=== PATIENT | male | born 1960 | race Caucasian/White ===

== ENCOUNTER 2025-06-03 22:13 | Emergency (ER) | payer OTHER ==
[~2025-06-03] VITALS: Ht 175.3 cm; Wt 68.4 kg
[2025-06-03 23:38] LABS: Hematocrit 40.5 % (41.0-53.0); Hemoglobin 14.0 g/dL (13.5-17.5); Mean Corpuscular Hemoglobin 31.1 pg (28.0-32.0); Mean Corpuscular Volume 89.7 fL (80.0-100.0); Nucleated Red Blood Cells % 0.1 %
[2025-06-03 23:45] LABS: Chloride 107 mmol/L (98-107); Potassium 4.4 mmol/L (3.5-5.1); Sodium 141 mmol/L (136-145)
[2025-06-03 23:46] LABS: Anion Gap 5 (5-15); Calcium 9.4 mg/dL (8.7-10.4); Carbon Dioxide 29 mmol/L (20-31)
[2025-06-03 23:51] LABS: BUN/Creatinine Ratio 11.5 (10.0-20.0); Blood Urea Nitrogen 13 mg/dL (9-23); Glucose 83 mg/dL (74-106)
--- NOTE | 2025-06-04 00:03 | ED.PDOC ---
History of Present Illness HPI Comments 64 y/o M presents with left arm swelling, redness, and pain. Patient reports onset of symptoms several days ago after watering his garden. He suspects on being bitten by an unknown insect then. Denies any nausea, vomiting, fever, chills, numbness, tingling, or further associated symptoms. Patient's tetanus is not up-to-date. Chief Complaint: Insect Bite Time Seen by MD: 23:20 Primary Care Provider: NONE Reviewed Notes: Nurses Notes, Medications, Allergies Allergies: Coded Allergies: NO KNOWN ALLERGIES (Unverified , 08/05/15) Information Source: Patient Mode of Arrival: Ambulatory Severity: Moderate Timing: Days Duration: Since onset Prehospital treatment: None Past Medical History PAST MEDICAL HISTORY: Denies Surgical History: Denies all surgeries Family History Family History: Unobtainable Social History Smoker: Cigarettes Alcohol: Occasionally Drugs: Methamphetamine Lives In: Home Constitutional: denies: chills, diaphoresis, fatigue, fever, malaise, sweats, weakness, others EENTM: denies: blurred vision, double vision, ear bleeding, ear discharge, ear drainage, ear pain, ear ringing, eye pain, eye redness, hearing loss, mouth pain, mouth swelling, nasal discharge, nose bleeding, nose congestion, nose pain, photophobia, tearing, throat pain, throat swelling, voice changes, others Respiratory: denies: cough, hemoptysis, orthopnea, SOB at rest, shortness of breath, SOB with excertion, stridor, wheezing, others Cardiovascular: denies: chest pain, dizzy spells, diaphoresis, Dyspnea on exertion, edema, irregular heart beat, left arm pain, lightheadedness, palpitations, PND, syncope, others Gastrointestinal: denies: abdomen distended, abdominal pain, blood streaked bowels, constipated, diarrhea, dysphagia, difficulty swallowing, hematemesis, melena, nausea, poor appetite, poor fluid intake, rectal bleeding, rectal pain, vomiting, others Genitourinary: denies: burning, dysuria, flank pain, frequency, hematuria, incontinence, penile discharge, penile sore, pain, testicle pain, testicle swelling, urgency, others Neurological: denies: dizziness, fainting, headache, left sided numbness, left sided weakness, numbness, paresthesia, pre-existing deficit, right sided numbness, right sided weakness, seizure, speech problems, tingling, tremors, weakness, others Musculoskeletal: denies: back pain, gout, joint pain, joint swelling, muscle pain, muscle stiffness, neck pain, others Integumetry: reports: wounds (Infected insect bite to left arm); denies: bruises, change in color, change in hair/nails, dryness, laceration, lesions, lumps, rash, others Allergic/Immunocompromised: denies: Difficulty Healing, Frequent Infections, Hives, Itching, others Hematologic/Lymphatic: denies: anemia, blood clots, easy bleeding, easy bruising, swollen glands, others Endocrine: denies: excessive hunger, excessive sweating, excessive thirst, excessive urination, flushing, intolerance to cold, intolerance to heat, unexplained weight gain, unexplained weight loss, others Psychiatric: denies: anxiety, bipolar disorder, depression, hopeless, panic disorder, schizophrenia, sleepless, suicidal, others All Other Systems: Reviewed and Negative (Comprehensive systems review obtained and negative except for what is stated in the HPI.) Physical Exam General Appearance: Mild Distress (Moderate distress at time of evaluation due to left arm concerns), Normal HEENT: Normal ENT Inspection, Pharynx Normal, TMs Normal Neck: Full Range of Motion, Non-Tender, Normal, Normal Inspection Respiratory: Chest Non-Tender, Lungs Clear, No Accessory Muscle Use, No Respiratory Distress, Normal Breath Sounds Cardiovascular: No Edema, No JVD, No Murmur, No Gallop, Normal Peripheral Pulses, Regular Rate/Rhythm Breast Exam: Deferred Gastrointestinal: No Organomegaly, Non Tender, No Pulsatile Mass, Normal Bowel Sounds, Soft Genitalia: Deferred Pelvic: Deferred Rectal: Deferred Extremities: Other (Left arm reveals two areas has been salt on the lateral and dorsal aspect with localized edema and mild erythema. No lymphangitis noted. Swelling extends into the hand.) Neurologic: Alert, No Motor Deficits, Normal Affect, Normal Mood, No Sensory Deficits Cerebellar Function: Normal Reflexes: Normal Skin: Dry, Normal Color, Warm Lymphatic: No Adenopathy Was a procedure done? Was a procedure done?: No Differential Dx Considerations may include: insect envenomization, contact dermatitis, cellulitis, among others X-Ray, Labs, Meds, VS Vital Signs Date Time Temp Pulse Resp B/P (MAP) Pulse Ox O2 Delivery O2 Flow Rate FiO2 06/03/25 23:00 98.8 67 18 131/84 (100) 99 98.8 Lab Test 06/03/25 23:28 Range/Units White Blood Count 9.4 4.4-10.8 10^3/uL Red Blood Count 4.51 4.5-5.90 10^6/uL Hemoglobin 14.0 13.5-17.5 g/dL Hematocrit 40.5 L 41.0-53.0 % Mean Corpuscular Volume 89.7 80.0-100.0 fL Mean Corpuscular Hemoglobin 31.1 28.0-32.0 pg Mean Corpuscular Hemoglobin Concent 34.7 32.0-36.0 g/dL Red Cell Distribution Width 13.5 11.8-14.3 % Platelet Count 403 140-450 10^3/uL Mean Platelet Volume 7.3 6.9-10.8 fL Neutrophils (%) (Auto) 68.6 37.0-80.0 % Lymphocytes (%) (Auto) 17.8 10.0-50.0 % Monocytes (%) (Auto) 9.9 0.0-12.0 % Eosinophils (%) (Auto) 3.4 0.0-7.0 % Basophils (%) (Auto) 0.3 0.0-2.0 % Neutrophils # (Auto) 6.5 1.6-8.6 10 ^3/uL Lymphocytes # (Auto) 1.7 0.4-5.4 10 ^3/uL Monocytes # (Auto) 0.9 0-1.3 10 ^3/uL Eosinophils # (Auto) 0.3 0-0.8 10 ^3/uL Basophils # (Auto) 0 0-0.2 10 ^3/uL Nucleated Red Blood Cells 0.1 % Sodium Level 141 136-145 mmol/L Potassium Level 4.4 3.5-5.1 mmol/L Chloride Level 107 98-107 mmol/L Carbon Dioxide Level 29 20-31 mmol/L Anion Gap 5 5-15 Blood Urea Nitrogen 13 9-23 mg/dL Creatinine 1.13 0.700-1.30 mg/dL Glomerular Filtration Rate Calc 73 >90 mL/min BUN/Creatinine Ratio 11.5 10.0-20.0 Serum Glucose 83 74-106 mg/dL Calcium Level 9.4 8.7-10.4 mg/dL X-Ray, Labs, Meds, VS Comment All studies performed the ED were evaluated by me personally. Serum studies were unremarkable for any systemic infection. Patient was given antibiotics prior to discharge and has been advised to utilize antibiotics as directed until completion. Time of 1ST Reevaluation: 00:12 Reevaluation 1ST: Improved Consultation: PCP Patient Education/Counseling: Diagnosis, Treatment Family Education/Counseling: Diagnosis, Treatment, No Family Present SEPSIS Sepsis Screen Date sepsis recognized/suspect: Jun 03, 2025 Time Sepsis recognized/suspect: 2299 Recent Procedure: No On Antibiotic Therapy: No Respiratory Rate >20: No Heart Rate >90: No Temp<36 C (96.8 F) or >38.3 C: No SBP <90 or MAP <65 mmHG: No New Acute Mental Status Change: No Is the patient on CPAP, BIPAP,: No Vital Signs Date Time Temp Pulse Resp B/P (MAP) Pulse Ox O2 Delivery O2 Flow Rate FiO2 06/03/25 23:00 98.8 67 18 131/84 (100) 99 98.8 Laboratory Tests Test 06/03/25 23:28 White Blood Count 9.4 10^3/uL (4.4-10.8) Departure 1 Departure Time of Disposition: 00:12 Impression: Primary Impression: Cellulitis of left forearm Disposition: HOME / SELF CARE / HOMELESS Condition: Stable Additional Instructions: Advised patient utilize antibiotics as directed until completion. Pain medication as needed. e-Prescriptions Ibuprofen (Ibuprofen) 600 Mg Tab 1 TAB PO Q6HP PRN, #20 TAB Prov: CHASE SORENSEN PAC 06/04/25 Sulfamethoxazole W/Trimethopri (Bactrim Ds Tablet) 1 Tab Tb 1 TAB PO BID for 10 Days, #20 TAB Prov: CHASE SORENSEN PAC 06/04/25 Discharged With: Self, Friend Critical Care Note Critical Care Time?: No Stability Stability form required: No Heart Score Heart Score: Heart Score Response (Comments) Value History N/A 0 EKG N/A 0 Age N/A 0 Risk Factors N/A 0 Troponin N/A 0 Total 0 I personally scribed for CHASE SORENSEN PAC ([email or web address]) on 06/04/25 at 00:03. Electronically submitted by Valentin Antonio ([email or web address]). CHASE SORENSEN PAC Jun 04, 2025 00:03
[2025-06-04] MEDS ORDERED: IBUP-1454 PO (00:14)
[2025-06-04] MEDS ORDERED: BACDST PO (00:14)
[2025-06-04] MEDS: SULFAMETHOX W/TRIMETH(800/160MG) DS TAB PO ONE (00:44)
[2025-06-04] MEDS: TETANUS-DIPTH-ACEL PERTUSSIS 0.5ML SYR Tdap IM ONE (00:45)
[2025-06-04 00:56] VITALS: BP 132/83; PULSE 78; RESP 14; TEMP 99; O2SAT 99
== END 2025-06-04 01:02 | disposition home or self-care (01) ==
LOC: ER 22:13
DX: L03.114 Cellulitis of left upper limb (principal); F17.210 Nicotine dependence, cigarettes, uncomplicated; F12.90 Cannabis use, unspecified, uncomplicated; Z79.899 Other long term (current) drug therapy
CPT/HCPCS: 36415; 80048; 85025; 90471; 90715; 96372; 99284; J1100

== ENCOUNTER 2025-11-03 11:36 | Emergency (ER) | payer MEDICAID ==
[~2025-11-03] VITALS: Ht 172.7 cm; Wt 71.4 kg
[~2025-11-03 11:36] MED LIST: BACDST PO; IBUP-1454 PO
--- NOTE | 2025-11-03 12:38 | ED.PDOC ---
History of Present Illness(SKN HPI Comments 65 y.o male presents for an evaluation of a wound check. Patient reports accidently scraping his left lower leg against his toolbox at home 6 days ago and since developed redness, swelling and pain to scrape region. Patient states wound is hot to the touch and pain increased on palpation and when bearing w eight to left leg, rating it a 8/10. Patient denies any fever, chills, nausea, vomiting. Chief Complaint: Cellulitis Time Seen by MD: 12:30 Primary Care Provider: NONE History of Present Illness: Nurses Notes, Medications, Allergies Allergies: Coded Allergies: NO KNOWN ALLERGIES (Unverified , 08/05/15) Home Meds Active Scripts Clindamycin Hcl (CLEOCIN) 150 Mg Cap, 1 CAP PO TID, #30 CAP Prov:RANJEET BAGLEY MD 11/03/25 Ibuprofen (Ibuprofen) 600 Mg Tab, 1 TAB PO Q6HP PRN, #20 TAB Prov:CHASE SORENSEN PAC 06/04/25 Sulfamethoxazole W/Trimethopri (Bactrim Ds Tablet) 1 Tab Tb, 1 TAB PO BID for 10 Days, #20 TAB Prov:CHASE SORENSEN PAC 06/04/25 Information Source: Patient Mode of Arrival: Ambulatory Severity: Moderate Timing: Days (6) Duration: Since onset Location: Leg Wound Type: Puncture, Other Immunization Status of Animal: NA Tetanus: Unknown History of: None Associated Signs and Symptoms: Redness, Swelling, Pain Past Medical History PAST MEDICAL HISTORY: Denies Surgical History: Denies all surgeries Family History Family History: Unobtainable Social History Smoker: Cigarettes Alcohol: Occasionally Drugs: Marijuana, Methamphetamine Lives In: Home Constitutional: denies: chills, diaphoresis, fatigue, fever, malaise, sweats, weakness, others EENTM: denies: blurred vision, double vision, ear bleeding, ear discharge, ear drainage, ear pain, ear ringing, eye pain, eye redness, hearing loss, mouth pain, mouth swelling, nasal discharge, nose bleeding, nose congestion, nose pain, photophobia, tearing, throat pain, throat swelling, voice changes, others Respiratory: denies: cough, hemoptysis, orthopnea, SOB at rest, shortness of breath, SOB with excertion, stridor, wheezing, others Cardiovascular: denies: chest pain, dizzy spells, diaphoresis, Dyspnea on exertion, edema, irregular heart beat, left arm pain, lightheadedness, palpitations, PND, syncope, others Gastrointestinal: denies: abdomen distended, abdominal pain, blood streaked bowels, constipated, diarrhea, dysphagia, difficulty swallowing, hematemesis, melena, nausea, poor appetite, poor fluid intake, rectal bleeding, rectal pain, vomiting, others Genitourinary: denies: burning, dysuria, flank pain, frequency, hematuria, incontinence, penile discharge, penile sore, pain, testicle pain, testicle swelling, urgency, others Neurological: denies: dizziness, fainting, headache, left sided numbness, left sided weakness, numbness, paresthesia, pre-existing deficit, right sided numbness, right sided weakness, seizure, speech problems, tingling, tremors, weakness, others Musculoskeletal: denies: back pain, gout, joint pain, joint swelling, muscle pain, muscle stiffness, neck pain, others Integumetry: reports: wounds (left lower leg swelling with redness ); denies: bruises, change in color, change in hair/nails, dryness, laceration, lesions, lumps, rash, others Allergic/Immunocompromised: denies: Difficulty Healing, Frequent Infections, Hives, Itching, others Hematologic/Lymphatic: denies: anemia, blood clots, easy bleeding, easy bruising, swollen glands, others Endocrine: denies: excessive hunger, excessive sweating, excessive thirst, excessive urination, flushing, intolerance to cold, intolerance to heat, unexplained weight gain, unexplained weight loss, others Psychiatric: denies: anxiety, bipolar disorder, depression, hopeless, panic disorder, schizophrenia, sleepless, suicidal, others All Other Systems: Reviewed and Negative Physical Exam General Appearance: No Apparent Distress HEENT: Normal ENT Inspection, Pharynx Normal, TMs Normal Neck: Full Range of Motion, Non-Tender, Normal, Normal Inspection Respiratory: Chest Non-Tender, Lungs Clear, No Accessory Muscle Use, No Respiratory Distress, Normal Breath Sounds Cardiovascular: No Edema, No JVD, No Murmur, No Gallop, Normal Peripheral Pulse s, Regular Rate/Rhythm Breast Exam: Deferred Gastrointestinal: No Organomegaly, Non Tender, No Pulsatile Mass, Normal Bowel Sounds, Soft Genitalia: Deferred Pelvic: Deferred Rectal: Deferred Extremities: No calf tenderness, Normal capillary refill, Normal inspection, Normal range of motion, Non-tender, No pedal edema Musculoskeletal : Apperance: Normal Neurologic: Alert, 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 Was a procedure done?: No Differential Diagnosis (INTG) Differential Diagnosis: N/A Differential Diagnosis: Abscess, Cellulitis, Osteomyelitis X-Ray, Labs, Meds, VS Vital Signs Date Time Temp Pulse Resp B/P (MAP) Pulse Ox O2 Delivery O2 Flow Rate FiO2 11/03/25 12:46 97.9 92 18 146/98 (114) 98 97.9 11/03/25 11:39 97.9 98 16 151/80 96 97.9 Current Medications Medications (Trade) Dose Ordered Sig/Jarad Route Start Time Stop Time Status Last Admin Clindamycin HCl (Cleocin Capsule) 150 mg ONCE ONCE PO 11/03/25 12:45 11/03/25 12:46 DC 11/03/25 12:52 The patient was given Cleocin 150 mg p.o. here in the emergency department's The patient is being discharged with a prescription of Cleocin The patient states that he does not need anything for pain and will just take medication at home The patient will return to the emergency department's condition worsens. Time of 1ST Reevaluation: 12:35 Reevaluation 1ST: Unchanged Patient Education/Counseling: Diagnosis, Treatment, Prognosis, Need For Follow Up Family Education/Counseling: No Family Present SEPSIS Sepsis Screen Date sepsis recognized/suspect: Nov 03, 2025 Time Sepsis recognized/suspect: 1141 Recent Procedure: No On Antibiotic Therapy: No Respiratory Rate >20: No Heart Rate >90: Yes Temp<36 C (96.8 F) or >38.3 C: No SBP <90 or MAP <65 mmHG: No New Acute Mental Status Change: No Is the patient on CPAP, BIPAP,: No Vital Signs Date Time Temp Pulse Resp B/P (MAP) Pulse Ox O2 Delivery O2 Flow Rate FiO2 11/03/25 12:46 97.9 92 18 146/98 (114) 98 97.9 11/03/25 11:39 97.9 98 16 151/80 96 97.9 Medications Medications Dose Ordered Sig/Jarad Route Start Time Stop Time Status Last Admin Dose Admin Clindamycin HCl 150 mg ONCE ONCE PO 11/03/25 12:45 11/03/25 12:46 DC 11/03/25 12:52 Departure 1 Departure Time of Disposition: 12:58 Impression: Primary Impression: Left leg cellulitis Disposition: 01 HOME / SELF CARE / HOMELESS Condition: Fair e-Prescriptions Clindamycin Hcl (CLEOCIN) 150 Mg Cap 1 CAP PO TID, #30 CAP Prov: RANJEET BAGLEY MD 11/03/25 Discharged With: Self Critical Care Note Critical Care Time?: No Stability Stability form required: No I personally scribed for RANJEET BAGLEY MD ([email or web address]) on 11/03/25 at 12:38. Electronically submitted by Kusum Osei ([email or web address]). RANJEET BAGLEY MD Nov 03, 2025 12:38
[2025-11-03 12:46] VITALS: BP 146/98; PULSE 92; RESP 18; TEMP 97.9; O2SAT 98
[2025-11-03] MEDS: CLINDAMYCIN HCL 150 MG CAP PO ONE (12:52)
[2025-11-03] MEDS ORDERED: CLIN150C PO (13:00)
== END 2025-11-03 13:15 | disposition home or self-care (01) ==
LOC: ER 11:36
DX: L03.116 Cellulitis of left lower limb (principal); F17.210 Nicotine dependence, cigarettes, uncomplicated; Z79.899 Other long term (current) drug therapy